=== PATIENT | male | born 1935 | race Caucasian/White ===

== ENCOUNTER 2016-08-04 05:02 | Emergency (ER) | payer MEDICARE, BC ==
[2016-08-04] MEDS ORDERED: Albuterol 0.083% 2.5 MG/3 ML Neb Soln NEB ONE ×2 (05:08→06:00)
[2016-08-04] MEDS ORDERED: Furosemide 40 MG/4 ML VIAL IVPUSH ONE (05:09)
[2016-08-04 05:11] VITALS: BP 118/101
[2016-08-04] MEDS ORDERED: Aspirin 81 MG Tab.Chew PO ONE (05:12)
[2016-08-04 05:38] LABS: CHLORIDE,CL 88 mmol/L (101-111); SODIUM,NA 124 mmol/L (135-145)
[2016-08-04] MEDS ORDERED: methylPREDNISolone Sodium Succinate 125 MG/2 ML SDV IVPUSH ONE (05:44)
[2016-08-04] MEDS ORDERED: Levofloxacin/Dextrose 5%-Water 500 MG in Premix Bag 1 BAG IV ONE (05:47)
--- NOTE | 2016-08-04 06:03 | EDM.PDOC ---
ED HISTORY OF PRESENT ILLNESS - General Chief Complaint: Respiratory Problem Stated Complaint: TROUBLE BREATHING Time Seen by Provider: 08/04/16 05:05 Source of Information: Reports: Patient, Family History Limitations: Reports: No limitations, Respiratory distress - History of Present Illness INITIAL COMMENTS - FREE TEXT/NARRATIVE: Ed via pvt vehicle with co SOB, has had cough, productive sputum for one week, last night some pink tinged. No prior respiratory hx Cardiac hx with AICD, previous pacemaker, remote AAA repair. Location, General: Reports: chest Associated Symptoms (General): Reports: cough, cough w sputum, fever/chills, shortness of breath - Related Data Allergies/ADRs: Allergies Allergy/AdvReac Type Severity Reaction Status Date / Time amoxicillin Allergy Cannot Verified 08/04/16 05:47 Remember atorvastatin calcium Allergy Cannot Verified 08/04/16 05:47 [From Lipitor] Remember dicyclomine HCl [From Bentyl] Allergy Cannot Verified 08/04/16 05:47 Remember pantoprazole Allergy Cannot Verified 08/04/16 05:47 Remember ranitidine Allergy Cannot Verified 08/04/16 05:47 Remember sulfasalazine Allergy Cannot Verified 08/04/16 05:47 Remember tamsulosin Allergy Cannot Verified 08/04/16 05:47 Remember Home Meds: Home Meds Acetaminophen 650 mg PO Q8H PRN 05/12/14 [History] Omeprazole [Omeprazole] 20 mg PO BID 05/12/14 [History] Psyllium [Metamucil SF] 1 tbs PO DAILY PRN 05/12/14 [History] Simvastatin [Simvastatin] 40 mg PO DAILY 05/12/14 [History] Verapamil HCl [Verapamil ER] 240 mg PO BEDTIME 05/12/14 [History] Hydrochlorothiazide [Hydrochlorothiazide] 25 mg PO DAILY 12/08/14 [History] Edoxaban Tosylate [Savaysa] 60 mg PO DAILY 12/09/14 [History] Isosorbide Mononitrate [Imdur] 30 mg PO DAILY 05/07/15 [History] Past Medical History HEENT History: Reports: Impaired vision Cardiovascular History: Reports: CAD, High cholesterol, Pacemaker, Stents Respiratory History: Reports: None Gastrointestinal History: Reports: Colon polyp, GERD, Other (see below) Other Gastrointestinal History: PEPTIC EXOPHAGEAL STRICTURE DILATATION Genitourinary History: Reports: Prostate disorder Neurological History: Reports: None Psychiatric History: Reports: None Endocrine/Metabolic History: Reports: None Hematologic History: Immunologic History: Reports: None Oncologic (Cancer) History: Reports: Prostate Dermatologic History: Reports: None - Past Surgical History Cardiovascular Surgical History: Reports: Coronary artery stent, Pacer GI Surgical History: Reports: Colon, Colonoscopy, Polypectomy Musculoskeletal Surgical History: Reports: None Social & Family History - Tobacco Use Smoking Status *Q: Never Smoker Years of Tobacco use: 30 Used Tobacco, but Quit: Yes Month Tobacco Last Used: 1993 Second Hand Smoke Exposure: No - Alcohol Use Days Per Week of Alcohol Use: 3 Number of Drinks Per Day: 6 Total Drinks Per Week: 18 - Recreational Drug Use Recreational Drug Use: No Drug Use in Last 12 Months: No ED ROS GENERAL - Review of Systems Review Of Systems: See Below Constitutional: Reports: chills HEENT: Reports: No symptoms Respiratory: Reports: shortness of breath, wheezing, cough, sputum, hemoptysis Cardiovascular: Reports: Dyspnea on exertion, PND, Other (midsternal pressure). Denies: Edema, Palpitations GI/Abdominal: Reports: No symptoms : Reports: no symptoms Musculoskeletal: Reports: no symptoms Skin: Reports: no symptoms Neurological: Reports: no symptoms ED EXAM, GENERAL - Physical Exam Exam: See Below Exam Limited By: No limitations General Appearance: alert, severe distress, thin Eye Exam: bilateral eye: EOMI Ears: normal external exam, normal TMs Nose: normal inspection Throat/Mouth: Normal inspection Head: atraumatic, normocephalic Neck: normal inspection, other (JVD) Respiratory/Chest: no accessory muscle use, respiratory distress, wheezing ( audible throughout) Cardiovascular: normal peripheral pulses, regular rate, rhythm, no edema, tachycardia GI/Abdominal: normal bowel sounds, soft, non tender, no distention (Male) Exam: No hernia Back Exam: normal inspection, CVA tenderness (L), CVA tenderness (R) Extremities: normal inspection Neurological: alert, oriented, normal cognition Psychiatric: anxious Skin Exam: Warm, Dry, Pallor Course - Vital Signs Last Recorded V/S: Last Vital Signs Temp 98.2 F 08/04/16 05:04 Pulse 110 H 08/04/16 05:04 Resp 28 H 08/04/16 05:04 BP 118/101 H 08/04/16 05:04 Pulse Ox 83 L 08/04/16 05:04 - Orders/Labs/Meds Orders: Active Orders 24 hr Category Date Time Status EKG 12 Lead [EKG Documentation Completion] [RC] URGENT Care 08/04/16 05:10 Active RT Aerosol Therapy [RC] ASDIRECTED Care 08/04/16 05:08 Active RT Aerosol Therapy [RC] ASDIRECTED Care 08/04/16 06:00 Active CXR [Chest 1V Frontal] [CR] Urgent Exams 08/04/16 05:09 Taken ABG [BLOOD GAS ARTERIAL] [BG] Stat Lab 08/04/16 05:40 Ordered CULTURE BLOOD [BC] Stat Lab 08/04/16 05:10 Received CULTURE BLOOD [BC] Stat Lab 08/04/16 05:15 Results Levofloxacin/Dextrose 5%-Water [Levaquin in D5W 500 MG/ Med 08/04/16 05:47 Active 100 ML] 500 mg Premix Bag 1 bag IV ONETIME Blood Culture x2 Reflex Set [OM.PC] Stat Oth 08/04/16 05:11 Ordered Medication Orders Levofloxacin/Dextrose 500 mg/ (Premix) 100 mls @ 100 mls/hr IV ONETIME ONE Stop: 08/04/16 06:46 Last Admin: 08/04/16 05:58 Dose: 100 mls/hr Labs: Laboratory Tests 08/04/16 08/04/16 08/04/16 Range/Units 05:10 05:10 05:10 WBC 17.8 H (5.0-10.0) 10^3/uL RBC 4.20 L (4.6-6.2) 10^6/uL Hgb 12.5 L (14.0-18.0) g/dL Hct 37.6 L (40.0-54.0) % MCV 89.5 (80-100) fL MCH 29.8 (27.0-34.0) pg MCHC 33.2 (33.0-35.0) g/dL Plt Count 234 (150-450) 10^3/uL Neut % (Auto) 66.3 (42.2-75.2) % Lymph % (Auto) 26.0 (20.5-50.1) % White % (Auto) 7.3 (2-8) % Eos % (Auto) 0.2 L (1.0-3.0) % Baso % (Auto) 0.2 (0.0-1.0) % Add Manual Diff Yes Neutrophils % (Manual) 63 % Band Neutrophils % 11 % Lymphocytes % (Manual) 15 % Atypical Lymphs % 0 % Monocytes % (Manual) 10 % Eosinophils % (Manual) 1 % Basophils % (Manual) 0 PT 12.6 H (9.0-12.0) SEC INR 1.3 H (0.9-1.2) Sodium 124 L (135-145) mmol/L Potassium 3.5 L (3.6-5.0) mmol/L Chloride 88 L (101-111) mmol/L Carbon Dioxide 22.0 (21.0-31.0) mmol/L Anion Gap 17.5 BUN 20 H (7-18) mg/dL Creatinine 1.0 (0.6-1.3) mg/dL Est Cr Clr Drug Dosing 61.49 mL/min Estimated GFR (MDRD) > 60 BUN/Creatinine Ratio 20.00 Glucose 229 H (74-105) mg/dL Lactic Acid (0.5-2.2) mmol/L Calcium 8.7 (8.4-10.2) mg/dl Total Bilirubin 1.1 H (0.2-1.0) mg/dL AST 29 (10-42) IU/L ALT 13 (10-60) IU/L Alkaline Phosphatase 57 (42-121) IU/L CK-MB (CK-2) (0.4-4.7) ng/mL Troponin I 0.08 H* (0.00-0.02) ng/ml B-Natriuretic Peptide 1580 H (0-100) pg/ml Total Protein 7.4 (6.7-8.2) g/dl Albumin 3.3 (3.2-5.5) g/dl Globulin 4.1 Albumin/Globulin Ratio 0.80 Urine Color (YELLOW) Urine Appearance (CLEAR) Urine pH (5.0-9.0) Ur Specific [place] (1.005-1.030) Urine Protein (NEGATIVE) Urine Glucose (UA) (NEGATIVE) Urine Ketones (NEGATIVE) Urine Occult Blood (NEGATIVE) Urine Nitrite (NEGATIVE) Urine Bilirubin (NEGATIVE) Urine Urobilinogen (0.2-1.0) mg/dL Ur Leukocyte Esterase (NEGATIVE) Urine RBC /HPF Urine WBC (0-5/HPF) /HPF Ur Epithelial Cells /HPF Urine Bacteria (0-FEW/HPF) /HPF 08/04/16 08/04/16 08/04/16 Range/Units 05:10 05:10 05:41 WBC (5.0-10.0) 10^3/uL RBC (4.6-6.2) 10^6/uL Hgb (14.0-18.0) g/dL Hct (40.0-54.0) % MCV (80-100) fL MCH (27.0-34.0) pg MCHC (33.0-35.0) g/dL Plt Count (150-450) 10^3/uL Neut % (Auto) (42.2-75.2) % Lymph % (Auto) (20.5-50.1) % White % (Auto) (2-8) % Eos % (Auto) (1.0-3.0) % Baso % (Auto) (0.0-1.0) % Add Manual Diff Neutrophils % (Manual) % Band Neutrophils % % Lymphocytes % (Manual) % Atypical Lymphs % % Monocytes % (Manual) % Eosinophils % (Manual) % Basophils % (Manual) PT (9.0-12.0) SEC INR (0.9-1.2) Sodium (135-145) mmol/L Potassium (3.6-5.0) mmol/L Chloride (101-111) mmol/L Carbon Dioxide (21.0-31.0) mmol/L Anion Gap BUN (7-18) mg/dL Creatinine (0.6-1.3) mg/dL Est Cr Clr Drug Dosing mL/min Estimated GFR (MDRD) BUN/Creatinine Ratio Glucose (74-105) mg/dL Lactic Acid 5.7 H (0.5-2.2) mmol/L Calcium (8.4-10.2) mg/dl Total Bilirubin (0.2-1.0) mg/dL AST (10-42) IU/L ALT (10-60) IU/L Alkaline Phosphatase (42-121) IU/L CK-MB (CK-2) 1.60 (0.4-4.7) ng/mL Troponin I (0.00-0.02) ng/ml B-Natriuretic Peptide (0-100) pg/ml Total Protein (6.7-8.2) g/dl Albumin (3.2-5.5) g/dl Globulin Albumin/Globulin Ratio Urine Color Yellow (YELLOW) Urine Appearance Slightly cloudy (CLEAR) Urine pH 6.0 (5.0-9.0) Ur Specific [place] 1.020 (1.005-1.030) Urine Protein Negative (NEGATIVE) Urine Glucose (UA) Negative (NEGATIVE) Urine Ketones 15 H (NEGATIVE) Urine Occult Blood Trace-intact H (NEGATIVE) Urine Nitrite Negative (NEGATIVE) Urine Bilirubin Negative (NEGATIVE) Urine Urobilinogen 1.0 (0.2-1.0) mg/dL Ur Leukocyte Esterase Negative (NEGATIVE) Urine RBC 0-5 /HPF Urine WBC 0-5 (0-5/HPF) /HPF Ur Epithelial Cells Few /HPF Urine Bacteria Few (0-FEW/HPF) /HPF Meds: Medications Generic Name Dose Route Start Last Admin Trade Name Freq PRN Reason Stop Dose Admin Levofloxacin/Dextrose 500 mg/ 100 mls @ 100 mls/hr 08/04/16 05:47 08/04/16 05 :58 Premix IV 08/04/16 06:46 100 mls/hr ONETIME ONE Administration Discontinued Medications Generic Name Dose Route Start Last Admin Trade Name Freq PRN Reason Stop Dose Admin Albuterol 2.5 mg 08/04/16 05:08 08/04/16 05:15 Pro[address]il [facility] 08/04/16 05:09 2.5 mg ONETIME ONE Administration Albuterol 2.5 mg 08/04/16 06:00 08/04/16 06:06 Pro[facility]il [facility] 08/04/16 06:01 2.5 mg ONETIME ONE Administration Aspirin 324 mg 08/04/16 05:12 08/04/16 05:24 Aspirin PO 08/04/16 05:13 324 mg ONETIME ONE Administration Furosemide 40 mg 08/04/16 05:09 08/04/16 05:14 Lasix IVPUSH 08/04/16 05:10 40 mg NOW ONE Administration Methylprednisolone Sodium Succinate 125 mg 08/04/16 05:44 08/04/16 05:50 Solu-Medrol IVPUSH 08/04/16 05:45 125 mg ONETIME ONE Administration - Radiology Interpretation Free Text/Narrative:: CXR pulmonary edema - asymmetric with right greater than left with possible combination multifocal pneumonia - Re-Assessments/Exams Free Text/Narrative Re-Assessment/Exam: 08/04/16 06:28 acute resp distress on arrival, sats room air 60% improve to 80's with NC, 94 with hi flow no rebreather, Albuterol neb x2 with improvement mor relaxed, talkative with son. Productive cough pick frothy sputum. Dr. Butler accepting of patient further eval and treatment Pulmonary edema, Patient request no intubation. Request all other measures. Tx via [facility] Departure - Departure Time of Disposition: 06:44 Disposition: DC/Tfer to [facility] 02 Condition: serious Clinical Impression: Hypoxemia, Elevated troponin, Hyponatremia Pulmonary edema Qualifiers: Chronicity: acute Qualified Code(s): J81.0 - Acute pulmonary edema CAD (coronary artery disease) Qualifiers: Coronary Disease-Associated Artery/Lesion type: unspecified vessel or lesion type [place] vs. transplanted heart: [place] heart Associated angina: without angina Qualified Code(s): I25.10 - Atherosclerotic heart disease of [place] coronary artery without angina pectoris Pneumonia Qualifiers: Pneumonia type: due to unspecified organism Laterality: right Lung location: lower lobe of lung Qualified Code(s): J18.1 - Lobar pneumonia, unspecified organism Forms: ED Department Discharge - My Orders Last 24 Hours: My Active Orders 08/04/16 05:08 RT Aerosol Therapy [RC] ASDIRECTED 08/04/16 05:09 CXR [Chest 1V Frontal] [CR] Urgent 08/04/16 05:10 EKG 12 Lead [EKG Documentation Completion] [RC] URGENT CULTURE BLOOD [BC] Stat 08/04/16 05:11 Blood Culture x2 Reflex Set [OM.PC] Stat 08/04/16 05:15 CULTURE BLOOD [BC] Stat 08/04/16 05:40 ABG [BLOOD GAS ARTERIAL] [BG] Stat 08/04/16 05:47 Levofloxacin/Dextrose 5%-Water [Levaquin in D5W 500 MG/100 ML] 500 mg Premix Bag 1 bag IV ONETIME 08/04/16 06:00 RT Aerosol Therapy [RC] ASDIRECTED - Assessment/Plan Last 24 Hours: My Active Orders 08/04/16 05:08 RT Aerosol Therapy [RC] ASDIRECTED 08/04/16 05:09 CXR [Chest 1V Frontal] [CR] Urgent 08/04/16 05:10 EKG 12 Lead [EKG Documentation Completion] [RC] URGENT CULTURE BLOOD [BC] Stat 08/04/16 05:11 Blood Culture x2 Reflex Set [OM.PC] Stat 08/04/16 05:15 CULTURE BLOOD [BC] Stat 08/04/16 05:40 ABG [BLOOD GAS ARTERIAL] [BG] Stat 08/04/16 05:47 Levofloxacin/Dextrose 5%-Water [Levaquin in D5W 500 MG/100 ML] 500 mg Premix Bag 1 bag IV ONETIME 08/04/16 06:00 RT Aerosol Therapy [RC] ASDIRECTED
--- NOTE | 2016-09-17 13:06 | EKG ---
08/04/2016 - EVELYN ESQUEDA - A 12-lead EKG shows sinus tachycardia with heart rate of 106, nonspecific ST-T wave changes noted on lead V2 and V3, nonspecific interventricular conduction delay and multiple PVCs noted. No significant ST elevation or ST depression noted. [facility] /[id number]
== END 2016-08-04 06:45 ==
LOC: DL.ED 05:02
DX: J81.0 Acute pulmonary edema (principal); J18.9 Pneumonia, unspecified organism; R09.02 Hypoxemia; R79.89 Other specified abnormal findings of blood chemistry; I25.10 Atherosclerotic heart disease of native coronary artery without angina pectoris; E78.00 Pure hypercholesterolemia, unspecified; Z95.5 Presence of coronary angioplasty implant and graft; Z95.0 Presence of cardiac pacemaker; K21.9 Gastro-esophageal reflux disease without esophagitis; C61 Malignant neoplasm of prostate; Z87.891 Personal history of nicotine dependence; Z79.899 Other long term (current) drug therapy; Z88.1 Allergy status to other antibiotic agents; Z88.2 Allergy status to sulfonamides; Z88.8 Allergy status to other drugs, medicaments and biological substances
CPT/HCPCS: 36415; 71010; 80053; 81001; 82553; 83605; 83880; 84484; 85025; 85610; 87040; 87070; 87205; 87804; 93005; 94640; 96365; 96375; 99285; A9270; J1940; J1956; J2930; J7620; 87077; 87186; 93010

== ENCOUNTER 2016-08-14 10:42 | Inpatient (IN) | payer MEDICARE, BC ==
[2016-08-17] MEDS ORDERED: Ondansetron 4 MG Tab.DIS PO PRN (14:09)
[2016-08-17] MEDS ORDERED: Acetaminophen 325 MG Tab PO PRN (14:09)
[2016-08-17] MEDS ORDERED: Psyllium Husk Powder Sugar Free 5.85 GM Packet PO PRN (14:15)
[2016-08-17] MEDS: Furosemide 20 MG Tab PO SCH (14:47)
[2016-08-17] MEDS: Ampicillin 2 GM in Sodium Chloride 0.9% 100 ML IV SCH ×3 (15:02→22:00)
[2016-08-17] MEDS: cefTRIAXone 2 GM in Sodium Chloride 0.9% 100 ML IV SCH ×2 (15:46→21:02)
[2016-08-17] MEDS: Potassium Chloride 10 MEQ Tab.ER PO SCH (17:55)
--- NOTE | 2016-08-17 18:30 | HP ---
CHIEF COMPLAINT: Endocarditis. HISTORY OF PRESENT ILLNESS: Mr. Nazario Davalos is a 81-year-old male with history of hypertension and dyslipidemia, was admitted to [facility] because of increasing shortness of breath and acute respiratory failure with hypoxia. He was noted to be bacteremic with enterococci. Echocardiogram showed evidence of vegetations on the aortic valve, tricuspid valve and one of the leads of the pacemaker. Today, the patient offers no new complaints. He is weak. Denies shortness of breath. No significant cough. He was also diagnosed with pneumonia. Infectious Disease has been consulted on the case. PAST MEDICAL HISTORY: 1. Hypertension, dyslipidemia, status post pacemaker/AICD placement. 2. Abdominal aortic aneurysm. 3. Coronary artery disease. 4. Dyslipidemia. 5. Hypertension. 6. Pre-diabetes. SOCIAL HISTORY: He was a former smoker. Also used to drink alcohol occasionally. CURRENT MEDICATIONS: Reviewed. patient is on: 1. Ampicillin. 2. Digoxin. 3. Furosemide. 4. Potassium chloride. 5. Rocephin. 6. Acetaminophen. 7. Imdur. 8. Metamucil. 9. Omeprazole. 10.Simvastatin. 11.Verapamil. REVIEW OF SYSTEMS: A 10-point review of system performed, no other pertinent findings except as noted above. OBJECTIVE: General: Patient is alert, oriented to place, time, and person. Head: Atraumatic and normocephalic. Ear, Nose, and Throat: Unremarkable. Neck: Supple. Chest: Diminished breath sounds bilaterally. CVS: Regular rate and rhythm. Abdomen: Soft, nontender. Extremities: No pedal edema. No finger clubbing. Skin: No rash. Neuro: Symmetric strength in all extremities. Psychiatric: Judgment and insight are good. Vital Signs: Reviewed. LABORATORY DATA: Hemoglobin is 10.5, platelet is 75, white count is 8.85. Transesophageal echocardiogram showed ejection fraction of more than 60%. There was vegetations noted on tricuspid valve and also on the ventricular pacing lead at the level of tricuspid valve. There was vegetation on the aortic valve with destruction of valve structure. ASSESSMENT: 1. Acute bacterial endocarditis. Blood culture was positive with enterococcus. 2. Pneumonia. CT scan showed infiltrative process involving the right lower lobe. 3. Sepsis secondary to pneumonia and endocarditis. 4. Thrombocytopenia. The patient was diagnosed with heparin-induced thrombocytopenia. The patient's heparin antibody was positive. 5. Acute hypoxemic respiratory failure, resolved. 6. Acute on chronic diastolic congestive heart failure. Clinically he is euvolemic at this point. PLAN: 1. Intravenous Rocephin 2 g every 12 hours. 2. Intravenous ampicillin 2 g every 6 hours. 3. Consult Physical therapy. Consult Occupational therapy. 4. Patient will eventually require valve surgery. [facility] /[id number]
[2016-08-17] MEDS ORDERED: Calamine/Zinc Oxide Lotion 118 ML Bottle TOP PRN (19:15)
[2016-08-17] MEDS ORDERED: cefTRIAXone 1 GM Vial IVPUSH SCH (21:00)
[2016-08-17] MEDS: Verapamil 240 MG Tab.ER PO SCH (21:01)
[2016-08-17] MEDS: Simvastatin 10 MG Tab PO SCH (21:01)
[2016-08-17] MEDS: Sodium Chloride 0.9% 10 ML Syringe FLUSH PRN (21:03)
[2016-08-18] MEDS: Ampicillin 2 GM in Sodium Chloride 0.9% 100 ML IV SCH ×6 (02:11→23:10)
[2016-08-18] MEDS: Sodium Chloride 0.9% 10 ML Syringe FLUSH PRN ×5 (02:12→23:04)
[2016-08-18] MEDS: Omeprazole 20 MG Cap.CR PO SCH (05:44)
[2016-08-18] MEDS: Isosorbide Mononitrate 30 MG Tab.ER PO SCH (06:28)
[2016-08-18] MEDS: cefTRIAXone 2 GM in Sodium Chloride 0.9% 100 ML IV SCH ×2 (08:15→22:06)
[2016-08-18] MEDS: Digoxin 125 MCG Tab PO SCH (08:17)
[2016-08-18] MEDS: Potassium Chloride 10 MEQ Tab.ER PO SCH ×2 (08:18→18:26)
[2016-08-18] MEDS: Furosemide 20 MG Tab PO SCH ×2 (08:18→14:37)
[2016-08-18] MEDS ORDERED: Hydrochlorothiazide 25 MG Tab PO SCH (09:00)
[2016-08-18] MEDS ORDERED: EDOXABAN TOSYLATE 60 MG PO SCH (09:00)
[2016-08-18] MEDS ORDERED: CALAMINE TOP PRN ×2 (09:53→09:55)
[2016-08-18] MEDS ORDERED: Furosemide 40 MG/4 ML VIAL IVPUSH ONE ×2 (21:35→22:40)
[2016-08-18] MEDS ORDERED: Albuterol/Ipratropium 3.0-0.5 MG/3 ML Neb Soln NEB ONE (21:35)
[2016-08-18] MEDS: Simvastatin 10 MG Tab PO SCH (22:05)
[2016-08-18] MEDS: Verapamil 240 MG Tab.ER PO SCH (22:05)
[2016-08-18] MEDS ORDERED: Morphine 2 MG/ML Syringe IVPUSH ONE (22:46)
[2016-08-18] MEDS ORDERED: Albuterol/Ipratropium 3.0-0.5 MG/3 ML Neb Soln NEB PRN (23:06)
--- NOTE | 2016-08-18 23:59 | PN ---
DATE: 08/18/2016 SUBJECTIVE: I got a call to evaluate Mr. Nazario Davalos. Patient went into severe respiratory distress, was making use of accessory muscle for respiration. Denies having chest pain. Indicated he feels short of breath. OBJECTIVE: In respiratory distress, been making use of accessory muscles for respiration. Diminished air entry bilaterally. Few expiratory rhonchi. ASSESSMENT: 1. Acute hypoxemic respiratory failure. This is likely due to pulmonary edema. May be a complaint of chronic obstructive pulmonary disease/emphysema. 2. Probable acute exacerbation of emphysema. PLAN: 1. Given the patient intravenous Lasix 40 mg. nebulized bronchodilators given. Despite this, patient continues to have shortness of breath. I will go ahead and give a stat dose of morphine. 2. Place patient on BiPAP. 3. Repeat Lasix. 4. Gross hemodynamic monitoring. If no improvement, we will transfer to tertiary center. [facility] /[id number]
[2016-08-19] MEDS: Ampicillin 2 GM in Sodium Chloride 0.9% 100 ML IV SCH ×2 (01:54→05:55)
[2016-08-19] MEDS: Sodium Chloride 0.9% 10 ML Syringe FLUSH PRN ×5 (01:54→06:33)
[2016-08-19] MEDS: Omeprazole 20 MG Cap.CR PO SCH (05:52)
[2016-08-19] MEDS ORDERED: Morphine 2 MG/ML Syringe IVPUSH ONE ×2 (06:13→08:35)
[2016-08-19] MEDS: Isosorbide Mononitrate 30 MG Tab.ER PO SCH (07:42)
[2016-08-19] MEDS ORDERED: Morphine 2 MG/ML Syringe ONE (08:38)
[2016-08-19] MEDS ORDERED: Aspirin 325 MG Tab PO ONE (09:17)
[2016-08-19] MEDS ORDERED: Aspirin 325 MG Tab ONE (09:23)
[2016-08-19] MEDS: cefTRIAXone 2 GM in Sodium Chloride 0.9% 100 ML IV SCH (09:38)
[2016-08-19 12:04] VITALS: BP 114/38
[2016-08-19] MEDS: Furosemide 20 MG Tab PO SCH (12:05)
[2016-08-19] MEDS: Digoxin 125 MCG Tab PO SCH (12:05)
[2016-08-19] MEDS: Potassium Chloride 10 MEQ Tab.ER PO SCH (12:05)
--- NOTE | 2016-08-20 01:24 | DISCH ---
FINAL DIAGNOSES: 1. Acute hypoxemic respiratory failure. 2. Acute pulmonary edema likely due to valvular heart disease. 3. Infective endocarditis. 4. Probable acute exacerbation of chronic obstructive pulmonary disease. 5. Hypotension. SUMMARY OF HOSPITAL COURSE: Mr. Nazario Davalos was admitted to the swing bed from [facility] with infective endocarditis affecting the tricuspid and aortic valve with vegetations documented on transesophageal echocardiogram. The patient was on ampicillin and Rocephin and these were continued with patient hospitalization. He became increasingly short of breath and went into respiratory distress. We gave him morphine, Lasix, and subsequently put him on BiPAP. He continued to have trouble with breathing. His blood pressure started dropping, especially diastolic down to 30s intermittently. He continued to have shortness of breath despite the above measures. The patient will be transferred back to [place]. PHYSICAL EXAMINATION: General: At discharge, the patient is alert, oriented to place, time, and person. Chest: Diminished breath sounds bilaterally. CVS: Regular rate and rhythm. Abdomen: Soft, nontender. Extremities: No pedal edema. No finger clubbing. Skin: No rash. The patient will be placed on BiPAP for the transfer. Med treatment for ambulance transfer. [facility] /[id number]
--- NOTE | 2016-08-21 10:59 | EKG ---
08/19/2016 - EVELYN ESQUEDA RAY - TIME: 8:54 a.m. EKG shows sinus rhythm. There is left bundle branch block. There is questionable Q wave in inferior leads. [facility] /[id number]
== END 2016-08-19 09:41 | DRG 189 ==
LOC: DL.MS 08-17 13:06 → UNDOADMIN 08-17 13:06 → DL.MS 08-17 14:09 → UNDODISIN 08-19 09:41
PROVIDERS: ADMIT Hospitalist; ATTEND Hospitalist
DX: J96.01 Acute respiratory failure with hypoxia (principal); A41.9 Sepsis, unspecified organism; I33.0 Acute and subacute infective endocarditis; J18.9 Pneumonia, unspecified organism; I50.33 Acute on chronic diastolic (congestive) heart failure; J44.1 Chronic obstructive pulmonary disease with (acute) exacerbation; J81.1 Chronic pulmonary edema; B95.2 Enterococcus as the cause of diseases classified elsewhere; D69.6 Thrombocytopenia, unspecified; I95.9 Hypotension, unspecified; I08.2 Rheumatic disorders of both aortic and tricuspid valves; Z87.891 Personal history of nicotine dependence; Z79.899 Other long term (current) drug therapy
CPT/HCPCS: 36415; 71010; 80048; 83880; 84484; 85025; 93005; 94660; 94762; A9270-GY; J0290; J0696; J1940; J2270; J7050